=== PATIENT | female | born 1935 | race Caucasian/White ===

== ENCOUNTER 2018-08-03 08:54 | Day surgery (SDC) | payer MEDICARE ==
[2018-08-03] MEDS ORDERED: PROPOFOL 20 ML (11:12)
[2018-08-03] MEDS ORDERED: LIDOCAINE 2% (SDV) 5 ML INJ (11:12)
== END 2018-08-03 12:31 | disposition home or self-care (01) ==
LOC: GIL 08:54
DX: K92.1 Melena (principal); E11.9 Type 2 diabetes mellitus without complications; I10 Essential (primary) hypertension; E78.5 Hyperlipidemia, unspecified; J44.9 Chronic obstructive pulmonary disease, unspecified; Z86.73 Personal history of transient ischemic attack (TIA), and cerebral infarction without residual deficits; F03.90 Unspecified dementia, unspecified severity, without behavioral disturbance, psychotic disturbance, mood disturbance, and anxiety; Z79.01 Long term (current) use of anticoagulants
CPT/HCPCS: 45378; 82962